=== PATIENT | female | born 1950 | race Hispanic/Latino ===

== ENCOUNTER 2019-03-27 13:50 | Emergency (ER) | payer MEDICARE ==
[~2019-03-27] VITALS: Ht 167.6 cm; Wt 72.6 kg
[2019-03-27] MEDS ORDERED: HYDROCODONE/APAP 7.5MG-325MG 1 EA TAB PO PRN (14:30)
[2019-03-27] MEDS ORDERED: ONDANSETRON HCL 4 MG ORAL DISINTEGRATING TAB PO NR (14:30)
== END 2019-03-27 14:57 | disposition home or self-care (01) ==
LOC: ER 13:50
DX: B02.9 Zoster without complications (principal); E11.9 Type 2 diabetes mellitus without complications; Z85.3 Personal history of malignant neoplasm of breast
CPT/HCPCS: 99283; Q0162

== ENCOUNTER 2021-08-09 16:28 | Emergency (ER) | payer OTHER, MEDICARE ==
[~2021-08-09] VITALS: Ht 167.6 cm; Wt 72.6 kg
[2021-08-09] MEDS ORDERED: ASPIRIN 81 MG CHEW TAB PO ONE (17:00)
[2021-08-09 17:50] LABS: CREATINE KINASE MB 4.1 ng/mL (0-5.0)
[2021-08-09] MEDS ORDERED: KETOROLAC TROMETHAMINE 30 MG/ML VIAL IV STA (17:56)
[2021-08-09] MEDS ORDERED: METOPROLOL SUCC25 MG PO (18:50)
[2021-08-09] MEDS ORDERED: TRESIBA FL100 UNIT/1 (18:50)
[2021-08-09] MEDS ORDERED: JARDIANCE10 MG PO (18:50)
[2021-08-09] MEDS ORDERED: GLIMEPIRIDE4 MG PO (18:50)
[2021-08-09] MEDS ORDERED: PIOGLITAZONE HC15 MG PO (18:50)
[2021-08-09] MEDS ORDERED: ATORVASTATIN CA20 MG PO (18:50)
[2021-08-09] MEDS ORDERED: ELIQUIS5 MG PO (18:50)
[2021-08-09 20:16] VITALS: BP 120/94
== END 2021-08-09 20:15 | disposition home or self-care (01) ==
LOC: ER 17:05
DX: R07.89 Other chest pain (principal); V43.62XA Car passenger injured in collision with other type car in traffic accident, initial encounter; Y92.488 Other paved roadways as the place of occurrence of the external cause; I48.92 Unspecified atrial flutter; E11.9 Type 2 diabetes mellitus without complications; Z85.3 Personal history of malignant neoplasm of breast
CPT/HCPCS: 36415; 71045; 82550; 82553; 84484; 93005; 99284; J1885

== ENCOUNTER 2024-11-21 21:40 | Emergency (ER) | payer OTHER ==
[~2024-11-21] VITALS: Ht 170.2 cm; Wt 69.4 kg
[~2024-11-21 21:40] MED LIST: AMLODIPINE BESYL5 MG PO; AMOX TR-K CLV1 EAC2 PO; ATORVASTATIN CA10 MG PO; ATORVASTATIN CA20 MG PO; DOXYCYCLINE HY100 MG PO; ELIQUIS5 MG PO; GLIMEPIRIDE4 MG PO; JARDIANCE10 MG PO; LOSARTAN POTAS100 MG PO; METOPROLOL SUCC25 MG PO; PIOGLITAZONE HC15 MG PO; TRESIBA FL100 UNIT/1; VITAMIN D PO
[2024-11-21 22:12] LABS: BASOPHILS % 0.9 % (0.0-1.0); EOSINOPHILS % 3.6 % (0.0-6.0); LYMPHOCYTES % 19.5 % (18.0-39.1); MONOCYTES % 9.9 % (4.4-11.3); NEUTROPHILS % 65.8 % (38.7-80.0); RED CELL DISTRIBUTION WIDTH 13.3 % (11.7-14.4)
[2024-11-21 22:31] LABS: EST GLOMERULAR FILTRATION RATE 23.0 ML/MIN (>=60)
[2024-11-21 23:26] VITALS: TEMP 98.2
[2024-11-22] MEDS: SODIUM CHLORIDE 0.9% 1000ML 1,000 ML IV SCH (00:05)
[2024-11-22 01:00] VITALS: PULSE 71; RESP 16; O2SAT 98
== END 2024-11-22 01:00 | disposition other institution (70) ==
LOC: ER 21:50 → MERGE 21:50 → ER 11-22 01:00
DX: N39.0 Urinary tract infection, site not specified (principal); N28.9 Disorder of kidney and ureter, unspecified; I48.92 Unspecified atrial flutter; R10.9 Unspecified abdominal pain; I10 Essential (primary) hypertension; E11.9 Type 2 diabetes mellitus without complications; E78.5 Hyperlipidemia, unspecified; Z88.8 Allergy status to other drugs, medicaments and biological substances
CPT/HCPCS: 36415; 80053; 82550; 83690; 83880; 84484; 85025; 93005; 99284; J2543; J7030